=== PATIENT | female | born 1955 | race African-American/Black ===

== ENCOUNTER 2021-04-29 02:21 | Emergency (ER) | payer OTHER ==
[~2021-04-29] VITALS: Ht 167.6 cm; Wt 86.6 kg
[2021-04-29 03:18] LABS: ABSOLUTE NEUTROPHILS 7.8 thou/uL (1.4-8.2); BASOPHILS 0.7 % (0.0-2.0); EOSINOPHILS 0.3 % (0.0-3.0); LYMPHOCYTES 16.8 % (24.0-44.0); MCH 27.5 pg (26.0-34.0); MCHC 33.4 g/dL (28.0-37.0); MCV 82.2 fL (80.0-100.0); MONOCYTES 8.2 % (1.0-8.0); PLATELET COUNT 260 thou/uL (150-400); RBC 4.74 mil/uL (4.20-5.00); WBC 10.5 thou/uL (4.0-11.0)
[2021-04-29 03:26] LABS: CALCIUM 8.7 mg/dL (8.5-10.1); CREATININE 0.7 mg/dL (0.6-1.0); POTASSIUM 3.7 mmol/L (3.5-5.1)
[2021-04-29 04:21] VITALS: BP 137/82
--- NOTE | 2021-04-29 07:08 | EKG ---
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
== END 2021-04-29 04:24 | disposition home or self-care (01) ==
LOC: ER 02:21 → EDBD 02:21 → ER 04:24
PROVIDERS: Emergency Medicine
DX: R00.2 Palpitations (principal); R01.1 Cardiac murmur, unspecified; I10 Essential (primary) hypertension; E10.9 Type 1 diabetes mellitus without complications